=== PATIENT | female | born 1965 | race Caucasian/White ===

== ENCOUNTER 2020-10-11 00:30 | Emergency (ER) | payer MEDICAID, OTHER ==
[~2020-10-11] VITALS: Ht 182.9 cm; Wt 61.2 kg
[2020-10-11 00:37] VITALS: BP 129/69
== END 2020-10-11 04:00 | disposition left against medical advice (07) ==
LOC: ER 00:35
DX: R07.81 Pleurodynia (principal); Z53.21 Procedure and treatment not carried out due to patient leaving prior to being seen by health care provider
CPT/HCPCS: 71250